=== PATIENT | male | born 1990 | race Caucasian/White ===

== ENCOUNTER 2017-10-13 15:37 | Emergency (ER) | payer BC ==
--- NOTE | 2017-10-13 15:56 | ER Report ---
History and Physical Time Seen By MD: 15:46 Hx. of Stated Complaint: left hand laceration on index finger between first and second knuckle HPI/ROS Source of History: The Patient Chief Concern: hurt finger History of Present Illnesses: 27-year-old male presents to the emergency department and reports he cut open his left index finger with a machete while he was chopping wood in [facility]. States the event occurred about an hour ago. Reports ability to move all of his fingers. States his pain is a 3/10 when he is not moving the finger. Reports no associated symptoms. Pain improves at rest, worse when moving the index digit. No treatments tried. States, he does not recall when his last tetanus vaccination was obtained. Constitutional: Denies recent illness, malaise, chills, fever. HEENT: Denies headache or changes in vision. Cardiovascular: Denies chest pain, palpitations, or diaphoresis. Respiratory: Denies shortness of breath, or difficulty breathing. Gastrointestinal System: Denies nausea, vomiting, diarrhea or constipation. Genitourinary: Denies changes in urination. Musculoskeletal: Denies muscular pain, no joint pain. Reports full ROM of the phalanges, reports pain of the left index digit. Allergies: Coded Allergies: No Known Allergies (Verified Allergy, Unknown, 10/13/17) Home Meds Active Scripts Cephalexin 500 Mg Tab (KEFLEX 500 MG TAB) 500 Mg Tablet, 500 MG PO Q6H, #20 TAB Prov:CLAUDY MAGALLON SALONI 10/13/17 Past Medical/Surgical History denies significant past medical or surgical history. Hx Substance Use Disorder: No Hx Alcohol Use: No Constitutional Vital Sign - Last 24 Hours 10/13/17 10/13/17 10/13/17 10/13/17 15:41 15:43 15:52 16:00 Temp 98.9 Pulse 93 82 Resp 12 B/P (MAP) 117/96 (103) 117/96 112/67 (82) 118/75 (89) Pulse Ox 99 100 O2 Delivery Room Air 10/13/17 10/13/17 10/13/17 10/13/17 16:15 16:30 16:37 16:45 Pulse 80 B/P (MAP) 111/75 (87) 111/74 (86) 116/77 (90) Pulse Ox 96 10/13/17 10/13/17 10/13/17 10/13/17 16:52 17:00 17:07 17:53 Pulse 92 77 85 Resp 16 B/P (MAP) 118/77 (91) 110/72 (85) Pulse Ox 94 94 92 O2 Delivery Room Air Physical Exam Constitutional: 27-year-old male in mild distress Skin: [place] and well perfused, left index finger with V shaped laceration of 8 cm in length. Head: Normocephalic and atraumatic. Cardiovascular: 2+ radial pulses BL equal. PMI - left midclavicular at the 5th ICS. Aortic, pulmonic, tricuspid, and mitral areas - clear S1/S2; no murmur, no S3, or S4. Cap refill of the hands less than 3 seconds BL Respiratory: Respiratory Excursion BL equal and symmetrical; no presence of lag ; quiet, rhythmic and effortless. No retractions. BL clear and equal. Musculoskeletal: Active ROM of all extremities and digits. Neuro: Sensation of the extremities and digits grossly intact. Medical Decision Making EKG/Imaging Imaging EXAMINATION: Left second finger radiographs 3 views HISTORY: Laceration. COMPARISON: None. FINDINGS: PA, lateral and oblique views of the left second finger are obtained. Bones: Negative. Joint spaces: Negative. Hardware: None. Alignment: Normal. Soft tissues: Soft tissue laceration and swelling at the base of the second finger. No radiopaque foreign body is identified. IMPRESSION: Soft tissue laceration and swelling of the base of the left second finger. No radiopaque foreign body is identified. Report Dictated By: Kyle Brown MD at 10/13/2017 5:01 PM Report E-Signed By: Kyle Brown MD at 10/13/2017 5:03 PM ED Course/Re-evaluation ED Course 27-year-old male presents to the emergency department after he cut open his left index finger with a machete. History and physical examination obtained. Differential diagnoses considered and shared with the patient. X-ray obtained. A digital block was performed with 1:1 lidocaine and bupivacaine. A tetanus vaccination was also administered. Laceration was V shaped 4 cm by 1.5 cm. 16 , 4.0 interrupting sutures placed without complication. The patient was sent home on Keflex and encouraged to keep the wound clean and dry. He has further been encouraged to have the sutures removed in 7 to 10 days by a health professional of his choice. The patient states agreement and has no further questions at this time. Procedure 4 cm by 1.5 cm V shaped, uncomplicated, laceration anesthetized with 1:1 lidocaine and bupivacaine. 16, 4-0 Prolene, simple interrupting sutures placed without complication by SALONI Guzman-student under the direct supervision and guidance of SALONI Kent. Decision to Disposition Date: Oct 13, 2017 Decision to Disposition Time: 17:49 Depart Departure Latest Vital Signs Vital Signs Date Time Temp Pulse Resp B/P (MAP) Pulse Ox O2 Delivery O2 Flow Rate FiO2 10/13/17 17:53 85 16 110/72 (85) 92 Room Air 10/13/17 15:43 98.9 Impression: Primary Impression: Laceration of left index finger Condition: Improved Disposition: HOME OR SELF-CARE New Scripts Cephalexin 500 Mg Tab (KEFLEX 500 MG TAB) 500 Mg Tablet 500 MG PO Q6H, #20 TAB Prov: CLAUDY MAGALLON 10/13/17 Patient Instructions: Finger Laceration (ED) Additional Instructions: Keep wound dry for 48 hours. Follow up with your primary care provider in the next 7-10 days to have sutures removed. Monitor for signs of infection; redness, swelling, heat, discharge, increasing pain or red streaking. Take Tylenol or Ibuprofen as needed for pain. Return to the ER with any concerns. You may change dressing as needed. Problem Qualifiers Primary Impression: Laceration of left index finger Encounter type: initial encounter Damage to nail status: without damage Foreign body presence: without foreign body Qualified Codes: S61.211A - Laceration without foreign body of left index finger without damage to nail, initial encounter CLAUDY MAGALLON Oct 13, 2017 15:56
[2017-10-13] MEDS ORDERED: DIPHTH/TETANUS/ACEL. PERTUSSIS IM ONLY ONE (16:05)
--- NOTE | 2017-10-13 17:09 | RADIOLOGY IMAGING REPORT ---
[place]AC[place] [facility] [place]IENT NAME: Arun Ramos : 1990 MR: [id number] V: [id number] EXAM DATE: ORDERING PHYSICIAN: CLAUDY MAGALLON TECHNOLOGIST: [place] [facility] [place]: Arun Ramos : 1990 Visit/Account:[id number] Date of Sevice: 10/13/2017 EXAMINATION: Left second finger radiographs 3 views HISTORY: Laceration. COMPARISON: None. FINDINGS: PA, lateral and oblique views of the left second finger are obtained. Bones: Negative. Joint spaces: Negative. Hardware: None. Alignment: Normal. Soft tissues: Soft tissue laceration and swelling at the base of the second finger. No radiopaque fo reign body is identified. IMPRESSION: Soft tissue laceration and swelling of the base of the left second finger. No radiopaque foreign body is identified. Report Dictated By: Kyle Brown MD at 10/13/2017 5:01 PM Report E-Signed By: Kyle Brown MD at 10/13/2017 5:03 PM WSN:[id number]
[2017-10-13] MEDS ORDERED: CEPH500T7 PO (17:44)
[2017-10-13 17:53] VITALS: BP 110/72
== END 2017-10-13 17:57 | disposition home or self-care (01) ==
LOC: ER 15:48
DX: S61.211A Laceration without foreign body of left index finger without damage to nail, initial encounter (principal); W26.1XXA Contact with sword or dagger, initial encounter; Y93.89 Activity, other specified; Y92.828 Other wilderness area as the place of occurrence of the external cause; Y99.8 Other external cause status; Z23 Encounter for immunization
CPT/HCPCS: 90471; 90715; 99283